=== PATIENT | male | born 1955 | race Caucasian/White ===

== ENCOUNTER → 2017-07-11 | Day surgery (SDC) | payer BC, OTHER ==
[~2017-07-11] MED LIST: BUPIVACAINE/EPINEPHRINE 0.25% 50 ML VIAL ONE; CHOLESTEROL MED PO; KETOROLAC TROMETHAMINE 60 MG/2 ML (IM) VIAL IM ONE; LACTATED RINGER'S 1000 ML INJ 1,000 ML ONE; ONDANSETRON HCL 4 MG/2 ML VIAL IV PUSH ONE; PROPOFOL 200 MG/20 ML AMP IV ONE; VANCOMYCIN HCL 1000 MG VIAL ONE
--- NOTE | 2017-07-11 10:00 | TN ---
cc: IBRAHIMA KOWALSKI DATE OF SURGERY: 07/11/2017 PREOPERATIVE DIAGNOSIS Mid-back soft tissue mass, clinically lipoma. POSTOPERATIVE DIAGNOSIS Mid-back soft tissue mass, clinically lipoma. PROCEDURE Excision of soft tissue mass mid-back, clinically lipoma, 5 cm x 4 cm x 4 cm. ATTENDING SURGEON Mary. [employer] Staff. ANESTHESIA General and local anesthetic. COMPLICATIONS None. ESTIMATED BLOOD LOSS 20 cc. FINDINGS A fatty benign-appearing, well-encapsulated lipoma. 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 The patient on clinical evaluation had a subcutaneous soft tissue mass consistent with a lipoma with. The risks, benefits and alternatives to excision were discussed with the patient in detail and the patient agreed to undergo the procedure. DETAILS OF PROCEDURE Informed consent was obtained. The patient was taken to the operating room and placed in a supine position and placed under general anesthesia. The patient was positioned in a right lateral decubitus position. The back was prepped and draped in a sterile fashion. A timeout was performed. An approximately 4-5 cm incision was made along with muscle lines of tension in the back with a 15 blade scalpel. Local anesthetic was instilled throughout the area as well. We used Bovie electrocautery to excise the lipoma which was well-encapsulated and stayed in the plane of normal fat. This was abutting the muscle but did not appear to be invading the muscle. This was completely excised with grossly all negative margins and passed off un-oriented for permanent pathology. We had excellent hemostasis with the Bovie electrocautery. We closed the skin with eight deep dermal 0 Vicryl sutures. We closed the skin with 4-0 Monocryl and Dermabond. The patient was discontinued from anesthesia and taken to the PACU in stable condition. The patient tolerated the procedure well with no apparent complications. All counts were correct. I was present and scrubbed for the entire procedure. Ibrahima oKwalski MD AWG/PAULINO /9:27 AM /9:32 AM
== END | disposition home or self-care (01) ==
LOC: ESDC 07:05
PROVIDERS: ATTEND Surgery
DX: D17.1 Benign lipomatous neoplasm of skin and subcutaneous tissue of trunk (principal)
CPT/HCPCS: 00300; 21931; 88304; J1885; J2405; J3010; J3370; J7120; 88305